=== PATIENT | male | born 1975 | race Caucasian/White ===

== ENCOUNTER 2018-08-01 10:01 | Emergency (ER) | payer OTHER ==
--- NOTE | 2018-08-01 10:34 | ED ---
Syncope/Near Syncope - HPI Summary HPI Summary: Patient is a 43 y/o M w/ c/o possible seizure coming on. Provider in room at 1025. 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 He states that he is experiencing an aura currently, states he is feeling right sided upper lip and right hand numbness. ESTES, dizziness is denied but he claims he is experiencing "fogginess". Patient claims that last aura he experienced was about 26 years ago. Patient reports that he has had a lack of sleep recently, which is noted to be a stressor. He notes alcohol consumption five days ago. 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 Neurologist of patient is Morris Cavazos. Patient states that he had a subdural hematoma this past January. Afterwards, he states he had a series of surgeries which included a craniotomy; he was hospitalized for 1.5 months from January to February. Patient was at [facility], surgeon was Dr. Kincaid. He reports that he was discharged home, had a surgical site infection and experienced two seizures and Ascencion's paralysis for six days. He went through rehab afterwards and was discharged to home. No focal neurological deficit is noted after this. Home medications keppra 1000 mg twice a day, dilantin 100 mg three capsules twice a day, Tegretol, 200 mg two tablets twice a day. Medications were taken this morning by patient. On triage, pain is denied , sleep is noted to alleviate Sx, nothing is reported to aggravate. In room, pulse is 74, o2 is 99%, bp is 148/88. Allergies/Adverse Reactions: Allergies Allergy/AdvReac Type Severity Reaction Status Date / Time No Known Allergies Allergy Verified 08/01/18 11:28 Home Medications: Home Medications Phenytoin CAP(*) [Dilantin CAP(*)] 300 mg PO BID 08/01/18 [History Confirmed 07/11] carBAMazepine TAB(*) [Tegretol TAB(*)] 400 mg PO BID 08/01/18 [History Confirmed 08/01/18] - History Of Current Complaint Chief Complaint: EDSeizure Time Seen by Provider: 08/01/18 10:22 Hx Obtained From: Patient, Other: - two [facility] nurses who saw pt this am. Onset/Duration: Sudden Onset, Lasting Minutes - first Sx onset around 929, Still Present Timing: Constant Context: Witnessed Activity At Onset: Other - at work as a [employer] rep, talking with [facility] staff Associated Head Trauma: No Aggravating Factor(s): Nothing Alleviating Factor(s): Rest - sleep Associated Signs And Symptoms: Numbness - right upper lip, right hand, Other - NEGATIVE: ESTES, dizziness POSITIVE; "fogginess"; nurses report possible slurred speech Related History: Similar Episode/Dx as - seizure Frequency: Episodes x___ - 1, Episodes Lasting ____ (in Mins/Days/Weeks/Years) - minutes - Allergies/Home Medications Allergies/Adverse Reactions: Allergies Allergy/AdvReac Type Severity Reaction Status Date / Time No Known Allergies Allergy Verified 08/01/18 11:28 Home Medications: Home Medications Phenytoin CAP(*) [Dilantin CAP(*)] 300 mg PO BID 08/01/18 [History Confirmed 07/11] carBAMazepine TAB(*) [Tegretol TAB(*)] 400 mg PO BID 08/01/18 [History Confirmed 08/01/18] PMH/Surg Hx/FS Hx/Imm Hx Previously Healthy: No Respiratory History: Reports: Hx Asthma Neurological History: Reports: Hx Seizures, Other Neuro Impairments/Disorders - hx astrocytoma; 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 craniotomy and deanna hole for subdural hematoma at [place] February 2018 Infectious Disease History: No Infectious Disease History: Denies: Traveled Outside the [place] in Last 30 Days - Family History Known Family History: Negative: Hypertension - Social History Occupation: Employed Full-time Lives: With Family Alcohol Use: None Substance Use Type: Reports: None Smoking Status (MU): Never Smoked Tobacco Review of Systems Positive: Other - "fogginess" Eyes: Negative Cardiovascular: Negative Respiratory: Negative Gastrointestinal: Negative Neurological: Other - NEGATIVE: dizziness Positive: Numbness - right hand, right upper lip . Negative: Headache Psychological: Normal All Other Systems Reviewed And Are Negative: Yes Physical Exam - Summary Physical Exam Summary: Appearance: Well-appearing, no pain distress, well-nourished Skin: Warm, color reflects adequate perfusion, dry Head: Normal Head/Face inspection, atraumatic; multiple craniotomy scars Eyes: Conjunctiva clear PERRL, EOMI, no nystamgus ENT: Normal inspection, oral mucosa moist, no tongue biting Neck: Supple, no nodes, no JVD Respiratory: Lungs clear, normal breath sounds, no respiratory distress Cardio: RRR, No murmur, pulses normal, brisk capillary refill Abdomen: Soft, nontender Bowel sounds: Present Musculoskeletal: Strength Intact/ROM intact, no calf tenderness, no edema. Psychological: Normal Neuro: A&O x3, CN II-XII intact, motor function 5/5, sensation intact, cerebellar normal; GCS 15, NIH 0 Triage Information Reviewed: Yes Vital Signs On Initial Exam: Initial Vitals Temp Pulse Resp BP Pulse Ox 98.5 F 74 14 148/88 99 08/01/18 10:13 08/01/18 10:13 08/01/18 10:13 08/01/18 10:13 08/01/18 10:13 Vital Signs Reviewed: Yes - Victoria Coma Scale Best Eye Response: 4 - Spontaneous Best Motor Response: 6 - Obeys Commands Best Verbal Response: 5 - Oriented Coma Scale Total: 15 Diagnostics - Vital Signs Vital Signs Temp Pulse Resp BP Pulse Ox 08/01/18 10:13 98.5 F 74 14 148/88 99 - Laboratory Result Diagrams: 08/01/18 10:48 08/01/18 10:48 Lab Statement: Any lab studies that have been ordered have been reviewed, and results considered in the medical decision making process. - Radiology CXR Xray Interpretation: No Acute Changes Radiology Interpretation Completed By: Radiologist - IMPRESSION: #. No intracranial hemorrhage, acute intracranial process, or mass effect evident. # . Stigmata of previous RIGHT and probable previous LEFT craniotomy. #. Encephalomalacia at the posterior LEFT frontal lobe with associated dystrophic calcification. #. Mild involutional change. THIS REPORT WAS REVIEWED BY ED PHYSICIAN. - CT CTA Head/Neck CT Interpretation: Positive (See Comments) CT Interpretation Completed By: Radiologist - IMPRESSION: 1. NO ANEURYSM, VASCULAR MALFORMATION, OCCLUSION, OR STENOSIS OF THE VISUALIZED INTRACRANIAL CIRCULATION. 2. NO INTERNAL CAROTID ARTERY STENOSIS BY NASCET CRITERIA. 3. THERE IS CALCIFICATION ALONG THE LEFT PRECENTRAL GYRUS WHICH MAY REFLECT DYSTROPHIC CALCIFICATION, THOUGH LOW-GRADE OR INTERMEDIATE GRADE CALCIFIED HYPERION ESSBASE DEVELOPER NEOPLASM IS WITHIN THE DIFFERENTIAL. RECOMMEND COMPARISON TO PREVIOUS OUTSIDE IMAGING OR CONSIDERATION OF MRI OF THE NONACUTE SETTING. 4. RIGHT-SIDED DURAL THICKENING BENEATH THE SITE OF CRANIOTOMY. THIS REPORT WAS REVIEWED BY ED PHYSICIAN. CT BRAIN CT Interpretation: Positive (See Comments) CT Interpretation Completed By: Radiologist - IMPRESSION: #. No intracranial hemorrhage, acute intracranial process, or mass effect evident. #. Stigmata of previous RIGHT and probable previous LEFT craniotomy. #. Encephalomalacia at the posterior LEFT frontal lobe with associated dystrophic calcification. #. Mild involutional change. - EKG 1033 Cardiac Rate: NL - rate of 70 bpm EKG Rhythm: Sinus Rhythm ST Segment: Non-Specific Ectopy: None EKG Interpretation: nml AV/IV CT, nml CT, nml QTc, and nml axis; no prior to compare Re-Evaluation - Re-Evaluation First Eval Re-Evaluation Time: 10:58 Change: Unchanged Comment: Nurse Giulia Ramsey had left a note about the patient. She was called at 1058. She reports that the patient had been slurring his speech but was able to walk. No facial droop was noted. Sx onset at 0955. She walked him to the ED and had him sign in. Yohana Crump RN states that at 0930 the patient said good morning twice and then realized that he had alread said that. Second Eval Re-Evaluation Time: 11:08 Change: Unchanged Comment: In with Dr. Christianson. Patient remains neurologically intact, CTA head/ neck will be ordered. Third Eval Re-Evaluation Time: 12:12 Change: Improved Comment: CT, CTA, electrolytes are fine. Trying to find out Keppra levels from Dr. Cavazos. Patient will likely be discharged after. Fourth Eval Re-Evaluation Time: 13:39 Change: Improved Comment: Patient states that he is feeling better. Discussed discharge plan and follow up treatment with patient. Course/Dx Course Of Treatment: Patient is a 43 y/o M w/ c/o possible seizure coming on. Provider in room at 1025. 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 He states that he is experiencing an aura currently, states he is feeling right sided upper lip and right hand numbness. ESTES, dizziness is denied but he claims he is experiencing "fogginess". Patient claims that last aura he experienced was about 26 years ago. Nurse Giulia Ramsey had left a note about the patient. She was called at 1058. She reports that the patient had been slurring his speech but was able to walk. No facial droop was noted. Sx onset at 0955. She walked him to the ED and had him sign in. Yohana Crump RN states that at 0930 the patient said good morning twice and then realized that he had alread said that. Patient reports that he has had a lack of sleep recently, which is noted to be a stressor. He notes alcohol consumption five days ago. PMHx of astrocytoma, subdural hematoma, seizures, todds paralysis. Home medications keppra 1000 mg twice a day, dilantin 100 mg three capsules twice a day. Tegretol, 200 mg two tablets twice a day. Medications were taken this morning by patient. Physical exam showed A&O x3, CN II-XII intact, motor function 5/5, sensation intact, cerebellar normal; GCS 15, NIH 0. Dr. Christianson was consulted on the patients case at 1056. He came to ED to evaluate patient. Case was discussed and determined not to be a stroke or code mack. CTA head/ neck was recommended. CT brain, CTA head/neck, CXR showed no acute processes. Labs showed normal electrolyte levels and no concerning findings for seizure disorder, although alk phos was elevated at 164 (nl 104).Dilantin and carbamazepine levels were therapeutic and keppra level was sent. Urine tox was negative. EKG showed normal sinus rhythm and rate of 70 bpm, non-specific ST, no ectopy, nml AV/IV CT, nml CT, nml QTc, and nml axis. At 1314, Dr. Cavazos was reached, reports last Keppra level was 13. Patients keppra will be increased to 1500 BID and other medications will be kept the same. Dr Christianson states that patient should not drive until cleared by his neurologist. He will be discharged to home and was instructed to follow up with his neurologist regarding the increased keppra dosage. 1339 - Patient states that he is feeling better. Discussed discharge plan and follow up treatment with patient. Dx of seizure disorder. - Diagnoses Differential Diagnosis/HQI/PQRI: Positive: Cerebral Vascular Accident, Dysrhythmia, Hyperventilation, Metabolic Reaction, Medication Reaction, Seizure , Other - seizure prodrome Provider Diagnoses: Seizure disorder, Aura, Elevated alkaline phosphatase level - Physician Notifications Discussed Care of Patient With: Filiberto Christianson Time Discussed With Above Provider: 10:56 Instructed by Provider To: Other - Dr. Christianson was consulted on patient's case at 1056. He will come to ED to consult on patient. 110 -- Dr. Christianson arrived in ED, discussed patient's case further. 110 -- CTA head/neck will be ordered. 1314 -- Dr. Cavazos called back. Last Keppra level was 13 which was taken on March [id number]. Patient's Keppra will be increased to 1500 BID. Other medications will be kept the same and patient will follow up with Dr. Cavazos. 1330 - Dr. Christianson states that patient should not drive until cleared by neurologist. Discharge - Sign-Out/Discharge Documenting (check all that apply): Patient Departure - discharge home - Discharge Plan Condition: Stable Disposition: HOME Prescriptions: levETIRAcetam TAB* [Keppra TAB*] 1,500 mg PO BID #180 tab Patient Education Materials: Epilepsy (ED) Forms: *Gen. Provider Communication, *Work Release Referrals: Gaston Cavazos MD [Medical Doctor] - As Soon As Possible (Call today for an appointment ) Additional Instructions: We did a CT brain, CTA of your head and neck and did not find any significant abnormalities. We gave you a copy of those reports and the disc. We also have given you a copy of your labs. Dr. Christianson, our neurologist evaluated you today and Dr. Christianson and Dr. Cavazos spoke on the phone about you and they want you to continue your tegretol and dilantin as is, and they want you to increase your keppra to 1500mg twice a day. We have sent a prescription for this to [facility] in [place], [place]. Call Dr. Cavazos's office today to schedule a soon appointment to follow up on this increased Keppra dose. Go to the closest emergency room, call 911, if you have any new or worsening symptoms. - Billing Disposition and Condition Condition: STABLE Disposition: Home - Attestation Statements Document Initiated by Scribe: Yes Documenting Scribe: Attila Angel Provider For Whom Scribe is Documenting (Include Credential): Elena Marcano MD Scribe Attestation: Attila Sabillon , scribed for Elena Marcano MD on 08/03/18 at 0024. Scribe Documentation Reviewed: Yes Provider Attestation: The documentation as recorded by the scribeAttlia accurately reflects the service I personally performed and the decisions made by me, Elena Marcano MD
[2018-08-01 11:07] LABS: ABS Basophils 0 10^3/ul (0-0.2); ABS Eosinophils 0.1 10^3/ul (0-0.6); ABS Lymphocytes 0.9 10^3/ul (1.0-4.8); ABS Monocytes 0.4 10^3/ul (0-0.8); ABS Neutrophils 4.6 10^3/ul (1.5-7.7); ABS Nucleated RBC 0 10^3/ul; Eosinophil % 0.9 % (0-6); Hematocrit 40 % (42-52); Hemoglobin 13.9 g/dl (14.0-18.0); Lymphocyte % 14.7 % (25-47); Mean Corpuscular HGB Conc 35 g/dl (31-36); Mean Corpuscular Hemoglobin 31 pg (27-31); Mean Corpuscular Volume 89 fL (80-94); Mean Platelet Volume 8.3 um3 (7.4-10.4); Nucleated Red Blood Cells % 0.4; Platelet Count 195 10^3/ul (150-450); Red Blood Count 4.53 10^6/ul (4.00-5.40); Red Cell Distribution Width 13 % (10.5-15); White Blood Count 5.9 10^3/ul (3.5-10.8)
[2018-08-01 11:18] LABS: INR 0.86 (0.77-1.02)
[2018-08-01] MEDS ORDERED: Iodixanol* (CONTRAST) 320 MG/ML 100 ML SDV IV ONE (11:26)
--- NOTE | 2018-08-01 11:29 | RAD ---
HISTORY: seizure COMPARISONS: None VIEWS: 1: frontal AP view of the chest at 11:17 AM FINDINGS: LINES AND TUBES: None. CARDIOMEDIASTINAL SILHOUETTE: The cardiomediastinal silhouette is normal for portable technique. PLEURA: The costophrenic angles are sharp. No pleural abnormalities are noted. LUNG PARENCHYMA: There is hyperinflation. ABDOMEN: The upper abdomen is clear. There is no subphrenic gas. BONES AND SOFT TISSUES: No bone or soft tissue abnormalities are noted. IMPRESSION: HYPERINFLATION. NO ACTIVE CARDIOPULMONARY DISEASE.
[2018-08-01 11:30] LABS: EGFR Non-African American 121.1 (>60)
--- NOTE | 2018-08-01 11:42 | RAD ---
Indication: Seizure with aura. Slurring words. Comparison: No relevant prior exams available on the [facility] [place] for comparison. Technique: Noncontrast CT vertex of skull through foramen magnum. Report: Postsurgical change of RIGHT frontotemporal craniotomy with internal fixation hardware. Also vague suggestion of previous LEFT craniotomy at the vertex without interval fixation hardware. Encephalomalacia at the posterior LEFT frontal lobe at the level of the centrum semiovale with associated probable laminar necrosis and calcification. Symmetric calcification at the bilateral basal ganglia. Moderate prominence on the LEFT cerebral sulci and bilateral cerebellar fissures reflecting atrophy. Unremarkable ventricles and basal cisterns. No carolina matter white matter obscuration or mass effect. Negative for intra or extra-axial hemorrhage. No suspicious calvarial or skull base lesions evident. Clear visualized paranasal sinuses and mastoid air spaces. Negative for scalp hematoma. IMPRESSION: #. No intracranial hemorrhage, acute intracranial process, or mass effect evident. #. Stigmata of previous RIGHT and probable previous LEFT craniotomy. #. Encephalomalacia at the posterior LEFT frontal lobe with associated dystrophic calcification. #. Mild involutional change.
--- NOTE | 2018-08-01 11:50 | RAD ---
HISTORY: astrocytoma, s/p subdural 01/2018 w surg,R numbness COMPARISONS: Head CT dated August 01, 2018 TECHNIQUE: Multiple contiguous axial CT scans were obtained of the head and neck after the administration of nonionic intravenous contrast timed to the systemic arterial phase of contrast enhancement. Coronal and sagittal multiplanar reformations are submitted for review. Multiple 3-D maximum intensity projection reconstructions are also submitted for review. FINDINGS: CTA NECK: AORTIC ARCH: There is a normal three-vessel branching pattern of the aortic arch. There is no ostial or proximal stenosis of the cephalic great vessels. RIGHT VERTEBRAL ARTERY: The right vertebral artery is patent along its course, without stenosis. LEFT VERTEBRAL ARTERY: The left vertebral artery is patent along its course, without stenosis. DOMINANCE: The vertebral arteries are codominant. RIGHT COMMON CAROTID ARTERY: The right common carotid artery is patent. The right carotid bifurcation occurs at C3-C4 RIGHT INTERNAL CAROTID ARTERY: There is no right internal carotid artery stenosis by NASCET criteria. RIGHT EXTERNAL CAROTID ARTERY: The right external carotid artery is unremarkable. LEFT COMMON CAROTID ARTERY: The left common carotid artery is patent. The left carotid bifurcation occurs at C3-C4 LEFT INTERNAL CAROTID ARTERY: There is no left internal carotid artery stenosis by NASCET criteria. LEFT EXTERNAL CAROTID ARTERY: The left external carotid artery is unremarkable. VENOUS CIRCULATION: The venous system is unremarkable. SALIVARY GLANDS: The parotid glands, submandibular glands, sublingual glands are normal. NASAL CAVITY/NASOPHARYNX: The nasal cavity and nasopharynx are normal. ORAL CAVITY/OROPHARYNX: The oral cavity is obscured by streak artifact from dental amalgam. The visualized oral cavity and oropharynx are unremarkable. LARYNGEAL APPARATUS/HYPOPHARYNX: The laryngeal apparatus and hypopharynx are normal. UPPER AIRWAY/UPPER ESOPHAGUS: The visualized upper airway and esophagus are normal. LUNG APICES: The lung apices are clear. THYROID GLAND: The thyroid gland is normal. LYMPH NODES: There is no lymphadenopathy by size criteria. BONES AND SOFT TISSUES: No bone or soft tissue abnormalities are noted. CTA HEAD: INTRACRANIAL CIRCULATION: There is no aneurysm, vascular malformation, occlusion, or stenosis of the visualized intracranial circulation. The anterior communicating artery complex is clear. There is a origin of the left posterior cerebral artery. VENOUS CIRCULATION: The venous system is unremarkable. PERFUSION: There is no obvious parenchymal perfusion deficit. HEMORRHAGE/INFARCT: There is no hemorrhage or acute infarct. MASSES/SHIFT: There is no mass or shift. EXTRA-AXIAL SPACES: There is partially calcified dural thickening along the right frontal parietal skull beneath the site of craniotomy. SULCI AND VENTRICLES: The sulci and ventricles are normal in size and position for the patient's stated age. CEREBRUM: There is dystrophic calcification of the left posterior frontal lobe in the precentral gyrus. BRAINSTEM: There are no focal parenchymal abnormalities. CEREBELLUM: There are no focal parenchymal abnormalities. PARANASAL SINUSES: The paranasal sinuses are clear. ORBITS: The orbits are unremarkable. BONES AND SOFT TISSUE: No bone or soft tissue abnormalities are noted. OTHER: There is no abnormal enhancement. IMPRESSION: 1. NO ANEURYSM, VASCULAR MALFORMATION, OCCLUSION, OR STENOSIS OF THE VISUALIZED INTRACRANIAL CIRCULATION. 2. NO INTERNAL CAROTID ARTERY STENOSIS BY NASCET CRITERIA. 3. THERE IS CALCIFICATION ALONG THE LEFT PRECENTRAL GYRUS WHICH MAY REFLECT DYSTROPHIC CALCIFICATION, THOUGH LOW-GRADE OR INTERMEDIATE GRADE CALCIFIED BALL RACKER NEOPLASM IS WITHIN THE DIFFERENTIAL. RECOMMEND COMPARISON TO PREVIOUS OUTSIDE IMAGING OR CONSIDERATION OF MRI OF THE NONACUTE SETTING. 4. RIGHT-SIDED DURAL THICKENING BENEATH THE SITE OF CRANIOTOMY. CPT II Codes: 3100F
[2018-08-01 12:34] LABS: Urine Appearance Clear; Urine Blood Negative (Negative); Urine Color Yellow; Urine Ketones Negative (Negative); Urine Protein Negative (Negative); Urine Specific Gravity 1.013 (1.010-1.030); Urine Urobilinogen Negative (Negative)
[2018-08-01 14:18] VITALS: BP 126/74
--- NOTE | 2018-08-01 21:05 | CONS ---
CONSULTATION REPORT: DATE OF CONSULT: 08/01/18 - EMERGENCY DEPT PATIENT OF: Dr. Marcano and Dr. Cavazos; Dr. Cavazos is a neurologist up at [facility]. HISTORY OF PRESENT ILLNESS: This is a 43-year-old man, who had right upper lip and right hand numbness, but there is no weakness. There may have been some slight speech problems as well. This was all resolved. He has had a history of astrocytoma, which was at age 16 on the right side and he has had a seizure disorder for that astrocytoma, followed by Dr. Cavazos. This past January, he had a subdural hematoma on the opposite side and required a series of surgeries including craniectomy and he was hospitalized for 6 weeks from January to February and discharged for that. He had infection at the surgical site and had 2 seizures and Ascencion's paralysis for 6 days and was in rehab afterwards. He had no focal deficits following this. He is on Keppra 1000 mg twice a day, Dilantin 100 three times a day, Tegretol 200 mg pills 2 twice a day. His Keppra level while I am talking to Dr. Cavazos was 18. There have been discussions of increasing the Keppra and weaning the Dilantin. Dilantin weaning motion at this point. PAST MEDICAL HISTORY: He is otherwise healthy other than his seizures without any other medical problems. MEDICATIONS: His antiseizure medicines are as described above and he is on no other medications. ALLERGIES: He has no known allergies. FAMILY HISTORY: He has family history for hypertension. SOCIAL HISTORY: He does not smoke or drink or use drugs. REVIEW OF SYSTEMS: There was no clear apparent seizure before his numbness in his face and hand and his slight speech problems. PHYSICAL EXAM: Temperature 97.4, pulse 81, respirations 16, blood pressure 126/ 74. He is alert and oriented with normal speech and comprehension. Cranial nerves II through XII were intact. Fundi were benign. Motor exam revealed normal tone, strength, coordination. Sensation intact to light touch. There is no feeling of numbness at this point. Chest: Clear. Cardiovascular: Regular rate and rhythm. Abdomen: Soft with positive bowel sounds. DIAGNOSTIC STUDIES/LAB DATA: He had a normal CBC other than a hematocrit of 40. INR/PTT was normal. Normal CMP. Urine tox screen was negative. UA was negative. His Dilantin level was 15.8, Tegretol 8.3. He had a CT and CTA with and without contrast. His CTA was negative other than the right dural thickening. His CT scan showed encephalomalacia, but no clear tumor or mass effect. IMPRESSION AND PLAN: I discussed his case with Dr. Cavazos and we both agree that this may well have been a small seizure. As he is doing well now, we are just going to increase him on his Keppra to 1500 twice a day. He is going to continue his other meds as is, and he will call Dr. Cavazos's office in the next several days' time to decide on further followup. Dr. Cavazos is aware of this plan. Thank you for sharing his case. [id number]/[facility] #: [id number] [place]
== END 2018-08-01 14:17 | disposition home or self-care (01) ==
LOC: ED 10:01
DX: G40.909 Epilepsy, unspecified, not intractable, without status epilepticus (principal); R20.0 Anesthesia of skin; R74.8 Abnormal levels of other serum enzymes
CPT/HCPCS: 36415; 70450; 70496; 70498; 71045; 80053; 80156; 80177; 80185; 80307; 80320; 81003; 82550; 83605; 83735; 84443; 84484; 85025; 85610; 85730; 93005; 99282; G0480; Q9967